=== PATIENT | female | born 1955 | race Caucasian/White ===

== ENCOUNTER 2023-08-02 23:53 | Inpatient (IN) ==
[2023-08-03] MEDS ORDERED: ONDANSETRON 4 MG/2 ML VIAL IV ONE (00:39)
[2023-08-03] MEDS ORDERED: 0.9 % SODIUM CHLORIDE 1,000 ML IV ONE ×2 (00:39→10:55)
[2023-08-03] MEDS ORDERED: morphine 2 MG/ML VIAL IV ONE (00:50)
[2023-08-03 02:21] LABS: Basophils # (Auto) 0.02 K/mcL (0.00-0.30); Basophils % (Auto) 0.2 % (0.0-2.0); Eosinophils # (Auto) 0 K/mcL (0.00-0.70); Eosinophils % (Auto) 0 % (0.0-7.0); Hematocrit 28.1 % (34.1-44.9); Hemoglobin 8.7 g/dL (11.2-15.7); Lymphocytes # (Auto) 0.57 K/mcL (1.50-4.80); Lymphocytes % (Auto) 5.2 % (15.5-49.0); Mean Platelet Volume 9.7 fL (8.8-12.5); Monocytes # (Auto) 0.35 K/mcL (0.10-0.90); Monocytes % (Auto) 3.2 % (1.0-12.0); Platelet Count 250 K/mcL (140-440); RBC 3.23 M/mcL (3.59-5.38); Red Cell Distribution Width 20.5 % (11.5-14.5)
[2023-08-03] MEDS ORDERED: PIPERACILLIN SODIUM/TAZOBACTAM 3.375 GM in DEXTROSE 5% IN WATER 50 ML IV ONE (02:23)
[2023-08-03 02:25] LABS: ALT/SGPT 11 U/L (<40); AST/SGOT 23 U/L (<32); Albumin 2.2 gm/dL (3.2-5.2); Albumin/Globulin Ratio 0.5 (1.0-2.3); Alkaline Phosphatase 263 U/L (39-117); Bilirubin,Total 0.3 mg/dL (0.1-1.0); Blood Urea Nitrogen 28 mg/dL (8-23); Calcium 7.1 mg/dL (8.6-10.4); Carbon Dioxide 16 mmol/L (22-30); Chloride 99 mmol/L (96-108); Globulin 4.2 gm/dL (2.2-3.7); Glomerular Filtration Rate 23; Glucose 135 mg/dL (70-105)
[2023-08-03] MEDS ORDERED: fentaNYL 100 MCG/2 ML VIAL IV ONE ×2 (02:38→06:39)
[2023-08-03] MEDS ORDERED: METOCLOPRAMIDE 10 MG/2 ML VIAL IV ONE (02:38)
[2023-08-03] MEDS ORDERED: 0.9 % SODIUM CHLORIDE 500 ML IV ONE (05:12)
[2023-08-03] MEDS ORDERED: metroNIDAZOLE 500 MG/100 ML BAG IV ONE (05:14)
[2023-08-03 05:47] LABS: Appearance,Urine HAZY (Clear); Bacteria,Urine MANY /hpf (0); Bilirubin,Urine Negative (Negative); Color,Urine YELLOW; Culture Indicated,Urine Yes; Glucose,Urine (UA) 150 mg/dL (Negative); Ketones,Urine Negative (Negative); Leukocyte Esterase,Urine Negative /uL (Negative); Mucus,Urine FEW /hpf; Nitrate,Urine POS (Negative); Protein,Urine Negative (Negative); Specific Gravity,Urine 1.013 (1.000-1.035); Urine Budding Yeast MOD /hpf; Urine Hyaline Cast 10 /lph (0-2); Urine RBC 9 /hpf (0-3); Urine Squamous Epithelial Cell < 1 /hpf (0-4); Urine Transitional Epi Cells < 1 /hpf (0-2); Urine WBC 2 /hpf (0-4); Urobilinogen,Urine Negative
[2023-08-03] MEDS: 0.9 % SODIUM CHLORIDE 1,000 ML IV SCH ×2 (06:35→16:30)
[2023-08-03] MEDS ORDERED: morphine 2 MG/ML VIAL IV PRN (07:44)
[2023-08-03] MEDS ORDERED: NALOXONE HCL 0.4 MG/ML VIAL IV PRN (07:44)
[2023-08-03] MEDS: ONDANSETRON 4 MG/2 ML VIAL IV ONE ×2 (07:58→08:05)
[2023-08-03] MEDS ORDERED: BISMUTH SUBSALICYLATE 15 ML ORAL.SUSP PO PRN (11:13)
[2023-08-03] MEDS ORDERED: POLYETHYLENE GLYCOL 3350 17 GM PACKET PO PRN (11:18)
[2023-08-03] MEDS ORDERED: POTASSIUM CHLORIDE 20 MEQ TABLET PO PRN ×2 (11:18)
[2023-08-03] MEDS ORDERED: MAGNESIUM SULFATE 2 GM/50 ML BAG IV PRN (11:18)
[2023-08-03] MEDS ORDERED: POTASSIUM CHLORIDE 40 MEQ in DEXTROSE 5% IN WATER 500 ML IV PRN (11:18)
[2023-08-03] MEDS ORDERED: IPRATROPIUM/ALBUTEROL 3 ML AMPUL.NEB NEB PRN (11:19)
[2023-08-03] MEDS ORDERED: DEXTROSE 50% 50 ML VIAL IV PRN (11:19)
[2023-08-03 11:21] LABS: ABG Methemoglobin 0.3 % (0.4-1.5); Total Hemoglobin 9.6 gm/Dl (12.0-15.0); VBG Base Excess -10 (-2-3); VBG PCO2 28.1 mmHg (41.0-51.0); VBG PH 7.35 U (7.32-7.42); VBG PO2 69.6 mmHg (25.0-40.0); VBG Total CO2 15.9 mmol/L (25.0-29.0)
[2023-08-03] MEDS ORDERED: METOPROLOL TARTRATE 5 MG/5 ML VIAL IV PRN (11:23)
[2023-08-03] MEDS ORDERED: SODIUM BICARBONATE VIAL 150 MEQ in WATER FOR INJECTION,STERILE 850 ML IV ONE (11:30)
[2023-08-03 11:51] LABS: Anisocytosis 2+ (None Seen); Band Neutrophils % 17 % (0-10); Hypochromasia OCC (None Seen); Lymphocytes % 8 % (15-49); Monocytes % (Manual) 1 % (1-12); Ovalocytes FEW (None Seen); Platelet Estimate NORMAL (Normal); Polychromasia 1+ (None Seen); RBC Morphology ABNORMAL (Normal); Segmented Neutrophils % 74 % (38-78)
[2023-08-03] MEDS: morphine 4 MG/ML VIAL IV PRN (11:55)
[2023-08-03] MEDS: ONDANSETRON 4 MG/2 ML VIAL IV PRN ×2 (11:55→23:08)
[2023-08-03] MEDS ORDERED: METHOCARBAMOL 500 MG TABLET PO PRN (12:17)
[2023-08-03] MEDS ORDERED: AMIODARONE HCL 200 MG TABLET PO SCH (12:20)
[2023-08-03] MEDS: metroNIDAZOLE 500 MG/100 ML BAG IV SCH ×2 (12:23→21:58)
[2023-08-03] MEDS: INSULIN LISPRO 1 UNIT/0.01 ML UNIT SQ SCH ×3 (13:03→20:58)
[2023-08-03] MEDS: cefTRIAXone 1 GM VIAL IV SCH (13:34)
[2023-08-03] MEDS: DEXTROSE 50% 50 ML SYRINGE IV PRN ×2 (13:57→21:31)
[2023-08-03] MEDS: HYDROcodone/APAP 5/325MG TABLET PO PRN ×2 (17:00→22:35)
[2023-08-03] MEDS: METOPROLOL TARTRATE 25 MG TABLET PO SCH (20:59)
[2023-08-03] MEDS: APIXABAN 5 MG TABLET PO SCH (20:59)
[2023-08-03] MEDS: ATORVASTATIN 40 MG TABLET PO SCH (20:59)
[2023-08-03] MEDS: FAMOTIDINE 20 MG TABLET PO SCH (20:59)
[2023-08-04] MEDS: DEXTROSE 31 GM ORAL.SUSP PO PRN ×2 (04:17→17:05)
[2023-08-04] MEDS: DEXTROSE 50% 50 ML SYRINGE IV PRN (04:52)
[2023-08-04] MEDS: metroNIDAZOLE 500 MG/100 ML BAG IV SCH ×3 (05:36→22:01)
[2023-08-04 06:36] LABS: Basophils % (Auto) 0.7 % (0.0-2.0); Eosinophils # (Auto) 0 K/mcL (0.00-0.70); Eosinophils % (Auto) 0 % (0.0-7.0); Hematocrit 24.9 % (34.1-44.9); Hemoglobin 7.8 g/dL (11.2-15.7); Lymphocytes # (Auto) 0.44 K/mcL (1.50-4.80); Lymphocytes % (Auto) 3.1 % (15.5-49.0); Mean Cell Volume 86.8 fL (80.0-100.0); Mean Corpuscular HGB Conc 31.3 g/dL (31.0-36.0); Mean Platelet Volume 10.2 fL (8.8-12.5); Monocytes # (Auto) 0.49 K/mcL (0.10-0.90); Monocytes % (Auto) 3.5 % (1.0-12.0); Neutrophils % (Auto) 92.3 % (38.0-78.0); Platelet Count 208 K/mcL (140-440); RBC 2.87 M/mcL (3.59-5.38); Red Cell Distribution Width 21.1 % (11.5-14.5)
[2023-08-04 06:59] LABS: ALT/SGPT 10 U/L (<40); AST/SGOT 23 U/L (<32); Albumin 1.4 gm/dL (3.2-5.2); Albumin/Globulin Ratio 0.4 (1.0-2.3); Alkaline Phosphatase 175 U/L (39-117); Bilirubin,Direct < 0.2 mg/dL (0-0.3); Bilirubin,Total 0.3 mg/dL (0.1-1.0); Blood Urea Nitrogen 22 mg/dL (8-23); Calcium 6.3 mg/dL (8.6-10.4); Carbon Dioxide 19 mmol/L (22-30); Chloride 103 mmol/L (96-108); Globulin 3.3 gm/dL (2.2-3.7); Glomerular Filtration Rate 35; Glucose 92 mg/dL (70-105); Lactate Dehydrogenase 277 U/L (135-225); Phosphorous 3.5 mg/dL (2.5-4.5); Triglycerides 60 mg/dL (<150); Uric Acid 6.7 mg/dL (2.5-8.0)
[2023-08-04 08:06] LABS: Anisocytosis 2+ (None Seen); Band Neutrophils % 40 % (0-10); Hypochromasia 2+ (None Seen); Lymphocytes % 2 % (15-49); Monocytes % (Manual) 6 % (1-12); Ovalocytes FEW (None Seen); Platelet Estimate NORMAL (Normal); Poikilocytosis FEW (None Seen); RBC Fragments RARE (None Seen); RBC Morphology ABNORMAL (Normal); Segmented Neutrophils % 52 % (38-78)
[2023-08-04] MEDS: ONDANSETRON 4 MG/2 ML VIAL IV PRN ×2 (08:54→14:56)
[2023-08-04] MEDS: cefTRIAXone 1 GM VIAL IV SCH (08:55)
[2023-08-04] MEDS: FAMOTIDINE 20 MG TABLET PO SCH ×2 (09:01→21:58)
[2023-08-04] MEDS: INSULIN LISPRO 1 UNIT/0.01 ML UNIT SQ SCH ×4 (09:01→22:04)
[2023-08-04] MEDS: METOPROLOL TARTRATE 25 MG TABLET PO SCH ×2 (09:01→21:58)
[2023-08-04] MEDS: APIXABAN 5 MG TABLET PO SCH ×2 (09:01→21:58)
[2023-08-04] MEDS: ASPIRIN 81 MG TAB.CHEW PO SCH (09:03)
[2023-08-04] MEDS: LEVOTHYROXINE 50 MCG TABLET PO SCH (09:04)
[2023-08-04] MEDS: SODIUM BICARBONATE 650 MG TABLET PO SCH ×3 (09:05→21:58)
[2023-08-04] MEDS: HYDROcodone/APAP 5/325MG TABLET PO PRN ×2 (10:29→19:24)
[2023-08-04] MEDS ORDERED: LACTATED RINGERS 500 ML IV ONE ×2 (12:00→14:29)
[2023-08-04] MEDS ORDERED: ALBUMIN HUMAN 12.5 GM/50 ML VIAL IV ONE (13:18)
[2023-08-04] MEDS ORDERED: LACTATED RINGERS 1,000 ML IV ONE (14:29)
[2023-08-04] MEDS: ATORVASTATIN 40 MG TABLET PO SCH (21:59)
[2023-08-05] MEDS: metroNIDAZOLE 500 MG/100 ML BAG IV SCH ×3 (05:58→21:33)
[2023-08-05 06:23] LABS: Hematocrit 23.8 % (34.1-44.9); Hemoglobin 7.5 g/dL (11.2-15.7); Mean Cell Volume 84.7 fL (80.0-100.0); Mean Corpuscular HGB Conc 31.5 g/dL (31.0-36.0); Mean Platelet Volume 10.5 fL (8.8-12.5); Platelet Count 221 K/mcL (140-440); RBC 2.81 M/mcL (3.59-5.38); Red Cell Distribution Width 20.7 % (11.5-14.5); WBC 14.9 K/mcL (4.5-11.0)
[2023-08-05 07:21] LABS: ALT/SGPT 7 U/L (<40); AST/SGOT 41 U/L (<32); Albumin 1.6 gm/dL (3.2-5.2); Albumin/Globulin Ratio 0.5 (1.0-2.3); Alkaline Phosphatase 199 U/L (39-117); Anion Gap 12.9 (8.0-16.0); Bilirubin,Direct 0.3 mg/dL (<0.3); Bilirubin,Total 0.4 mg/dL (0.1-1.0); Blood Urea Nitrogen 28 mg/dL (8-23); Calcium 6.6 mg/dL (8.6-10.4); Carbon Dioxide 20 mmol/L (22-30); Chloride 105 mmol/L (96-108); Globulin 2.9 gm/dL (2.2-3.7); Glomerular Filtration Rate 39; Glucose 48 mg/dL (70-105); Lactate Dehydrogenase 273 U/L (135-225); Phosphorous 2.5 mg/dL (2.5-4.5); Triglycerides 64 mg/dL (<150); Uric Acid 6.8 mg/dL (2.5-8.0)
[2023-08-05] MEDS: LEVOTHYROXINE 50 MCG TABLET PO SCH (07:50)
[2023-08-05] MEDS: DEXTROSE 31 GM ORAL.SUSP PO PRN (07:50)
[2023-08-05] MEDS ORDERED: LOPERAMIDE 2 MG CAPSULE PO SCH (08:07)
[2023-08-05] MEDS ORDERED: LOPERAMIDE 2 MG CAPSULE PO PRN (08:07)
[2023-08-05 08:43] LABS: Anisocytosis 2+ (None Seen); Band Neutrophils % 7 % (0-10); Lymphocytes % 6 % (15-49); Monocytes % (Manual) 2 % (1-12); Platelet Estimate NORMAL (Normal); Polychromasia 1+ (None Seen); RBC Morphology ABNORMAL (Normal); Segmented Neutrophils % 85 % (38-78); Target Cells OCC (None Seen); Tear Drop Cells OCC (None Seen)
[2023-08-05] MEDS ORDERED: ALBUMIN HUMAN 12.5 GM/50 ML VIAL IV SCH (08:52)
[2023-08-05] MEDS: AMIODARONE HCL 200 MG TABLET PO SCH (08:54)
[2023-08-05] MEDS: APIXABAN 5 MG TABLET PO SCH ×2 (08:54→21:30)
[2023-08-05] MEDS: FAMOTIDINE 20 MG TABLET PO SCH ×2 (08:54→21:30)
[2023-08-05] MEDS: ASPIRIN 81 MG TAB.CHEW PO SCH (08:55)
[2023-08-05] MEDS: INSULIN LISPRO 1 UNIT/0.01 ML UNIT SQ SCH ×4 (08:55→21:40)
[2023-08-05] MEDS: HYDROcodone/APAP 5/325MG TABLET PO PRN ×4 (09:00→22:38)
[2023-08-05] MEDS ORDERED: AMIODARONE 100 MG PO SCH (09:00)
[2023-08-05] MEDS: cefTRIAXone 1 GM VIAL IV SCH (11:07)
[2023-08-05] MEDS: SODIUM BICARBONATE 650 MG TABLET PO SCH ×3 (11:08→21:30)
[2023-08-05] MEDS: ATORVASTATIN 40 MG TABLET PO SCH (21:29)
[2023-08-06] MEDS: metroNIDAZOLE 500 MG/100 ML BAG IV SCH ×2 (05:44→14:26)
[2023-08-06] MEDS: ONDANSETRON 4 MG/2 ML VIAL IV PRN ×3 (06:09→18:30)
[2023-08-06] MEDS: INSULIN LISPRO 1 UNIT/0.01 ML UNIT SQ SCH ×3 (07:21→17:32)
[2023-08-06 07:23] LABS: Basophils # (Auto) 0.01 K/mcL (0.00-0.30); Basophils % (Auto) 0.1 % (0.0-2.0); Eosinophils # (Auto) 0.04 K/mcL (0.00-0.70); Eosinophils % (Auto) 0.3 % (0.0-7.0); Hematocrit 25.8 % (34.1-44.9); Hemoglobin 8.4 g/dL (11.2-15.7); Lymphocytes # (Auto) 0.95 K/mcL (1.50-4.80); Lymphocytes % (Auto) 6.8 % (15.5-49.0); Mean Cell Volume 84.9 fL (80.0-100.0); Mean Corpuscular HGB Conc 32.6 g/dL (31.0-36.0); Mean Platelet Volume 10.4 fL (8.8-12.5); Monocytes # (Auto) 0.53 K/mcL (0.10-0.90); Monocytes % (Auto) 3.8 % (1.0-12.0); Neutrophils % (Auto) 88.6 % (38.0-78.0); Platelet Count 261 K/mcL (140-440); RBC 3.04 M/mcL (3.59-5.38); Red Cell Distribution Width 20.9 % (11.5-14.5)
[2023-08-06] MEDS: HYDROcodone/APAP 5/325MG TABLET PO PRN ×2 (07:26→14:44)
[2023-08-06 08:01] LABS: ALT/SGPT 12 U/L (<40); AST/SGOT 67 U/L (<32); Albumin 1.8 gm/dL (3.2-5.2); Albumin/Globulin Ratio 0.5 (1.0-2.3); Alkaline Phosphatase 418 U/L (39-117); Anion Gap 12.8 (8.0-16.0); Bilirubin,Direct 0.5 mg/dL (<0.3); Bilirubin,Total 0.6 mg/dL (0.1-1.0); Blood Urea Nitrogen 27 mg/dL (8-23); Carbon Dioxide 20 mmol/L (22-30); Chloride 102 mmol/L (96-108); Globulin 3.3 gm/dL (2.2-3.7); Glomerular Filtration Rate 38; Glucose 92 mg/dL (70-105); Lactate Dehydrogenase 346 U/L (135-225); Phosphorous 2.1 mg/dL (2.5-4.5); Triglycerides 93 mg/dL (<150); Uric Acid 7.1 mg/dL (2.5-8.0)
[2023-08-06] MEDS ORDERED: 0.9 % SODIUM CHLORIDE 1,000 ML IV ONE (08:10)
[2023-08-06] MEDS ORDERED: cefTRIAXone 2 GM in DEXTROSE 5% IN WATER 50 ML IV SCH (09:00)
[2023-08-06] MEDS: LEVOTHYROXINE 50 MCG TABLET PO SCH (09:15)
[2023-08-06] MEDS: APIXABAN 5 MG TABLET PO SCH (09:15)
[2023-08-06] MEDS: ASPIRIN 81 MG TAB.CHEW PO SCH (09:15)
[2023-08-06] MEDS: FAMOTIDINE 20 MG TABLET PO SCH (09:15)
[2023-08-06] MEDS: AMIODARONE HCL 200 MG TABLET PO SCH (09:15)
[2023-08-06] MEDS ORDERED: IOPAMIDOL 100 ML BOTTLE IV ONE (11:51)
[2023-08-06] MEDS ORDERED: PROMETHAZINE 25 MG/ML VIAL IV PRN (12:30)
[2023-08-06] MEDS ORDERED: 0.9 % SODIUM CHLORIDE 1,000 ML IV SCH (14:15)
[2023-08-06] MEDS: morphine 4 MG/ML VIAL IV PRN (18:29)
== END 2023-08-06 20:10 | disposition short-term general hospital (02) | DRG 394 ==
LOC: ED 23:53 → MEDSUR 23:53
PROVIDERS: ADMIT Internal Medicine; ATTEND Internal Medicine